=== PATIENT | female | born 2000 | race Two or more races ===

== ENCOUNTER 2022-05-27 18:59 | Emergency (ER) | payer OTHER ==
[~2022-05-27] VITALS: Ht 149.9 cm; Wt 77.3 kg
[2022-05-27 19:10] VITALS: BP 116/72
== END 2022-05-27 22:00 | disposition left against medical advice (07) ==
LOC: EMS 19:05
DX: H92.03 Otalgia, bilateral (principal); Z53.21 Procedure and treatment not carried out due to patient leaving prior to being seen by health care provider